=== PATIENT | male | born 2000 | race Caucasian/White ===

== ENCOUNTER 2023-04-18 10:18 | Emergency (ER) | payer BC, OTHER ==
[2023-04-18] MEDS ORDERED: Penicillin V Potassium 500 MG Tab PO SCH (11:30)
[2023-04-18] MEDS ORDERED: Ibuprofen 600 MG Tab PO ONE (11:35)
== END 2023-04-18 12:05 | disposition home or self-care (01) ==
LOC: JD.ED 10:18
DX: K08.89 Other specified disorders of teeth and supporting structures (principal)
CPT/HCPCS: 99282; A9270; 99283